=== PATIENT | male | born 1940 | race Caucasian/White ===

== ENCOUNTER 2016-08-08 22:51 | Emergency (ER) | payer MEDICARE, BC ==
[2016-08-08] MEDS ORDERED: SYMBICORT1 AE3 IH (23:32)
[2016-08-08] MEDS ORDERED: NASAL SPRAY30 ML (23:32)
[2016-08-08] MEDS ORDERED: DOXYCYCLINE HY100 M5 PO (23:47)
[2016-08-09 00:02] VITALS: BP 125/77
== END 2016-08-09 00:02 | disposition home or self-care (01) ==
LOC: ED 22:51
DX: S40.861A Insect bite (nonvenomous) of right upper arm, initial encounter (principal)